=== PATIENT | male | born 1975 | race Hispanic/Latino ===

== ENCOUNTER 2018-12-04 10:52 | Emergency (ER) | payer SELFPAY ==
[2018-12-04] MEDS ORDERED: NA CHLORIDE 0.9% 1,000 ML ONE (11:22)
[2018-12-04 11:38] LABS: Basophils % 0.4 % (0-1.3); Hematocrit 32.6 % (39.6-49.0); Lymphocytes % 28.2 % (15.3-44.8); MPV 9.8 fL (7.6-11.3); RBC Red Blood Cell Count 3.65 M/uL (4.33-5.43)
[2018-12-04 11:55] LABS: Albumin 2.6 g/dL (3.4-5.0); Bilirubin Direct 0.1 mg/dL (0-0.2); Bilirubin Total 0.3 mg/dL (0.2-1.0); Potassium 3.8 mmol/L (3.5-5.1); Protein, Total 6.4 g/dL (6.4-8.2)
[2018-12-04] MEDS ORDERED: CEFTRIAXONE/SWI 1gm 1 GM/10 ML SYR ONE (13:47)
--- NOTE | 2018-12-04 14:09 | ER ---
Nurse's Notes [facility] Name: Harjinder Clayton Age: 43 yrs Sex: Male : 1975 Arrival Date: 12/04/2018 Time: 10:54 Bed 2 Private MD: Diagnosis: Hyperglycemia, unspecified;Chronic Renal Failure, DM - Poorly controlled Presentation: 12/04 10:59 Presenting complaint: Sent from [facility] for DM and renal faiilure. BGL>500, hb CREAT 3.58, HCG 11.1, HCT 32.1. Transition of care: patient was not received from another setting of care. Onset of symptoms was December 04, 2018. Risk Assessment: Do you want to hurt yourself or someone else? Patient reports no desire to harm self or others. Initial Sepsis Screen: Does the patient meet any 2 criteria? No. Patient's initial sepsis screen is negative. Does the patient have a suspected source of infection? No. Patient's initial sepsis screen is negative. Care prior to arrival: None. 10:59 Method Of Arrival: Ambulatory hb 10:59 Acuity: RUSS 3 hb Historical: - Allergies: 11:04 No Known Allergies; hb - PMHx: 11:04 Diabetes - NIDDM; hb - Immunization history:: Adult Immunizations up to date. - Social history:: Smoking status: Patient uses tobacco products, smokes one pack cigarettes per day. - Ebola Screening: : No symptoms or risks identified at this time. Screenin:38 Abuse screen: Denies threats or abuse. Denies injuries from another. Nutritional sg screening: No deficits noted. Tuberculosis screening: No symptoms or risk factors identified. Never had TB. Fall Risk None identified. Assessment: 11:38 Reassessment: Patient appears in no apparent distress at this time. Patient and/or sg family updated on plan of care and expected duration. Pain level reassessed. Vital Signs: 11:04 BP 114 / 64; Pulse 81; Resp 16; Temp 97.7; Pulse Ox 100% on R/A; Pain 0/10; hb ED Course: 10:54 Patient arrived in ED. as 11:02 Ruperto Duncan MD is Attending Physician. kdr 11:03 Triage completed. hb 11:04 Arm band placed on left wrist. hb 11:15 Sales, Itz, RN is Primary Nurse. sg 11:39 Initial lab(s) drawn, by me, sent to lab. Inserted saline lock: 22 gauge in right jb1 forearm, using aseptic technique. Blood collected. 12:06 Patient has correct armband on for positive identification. Placed in gown. Bed in low sg position. Side rails up X2. 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 Pulse ox on. NIBP on. 13:30 No provider procedures requiring assistance completed. Urine collected: straight cath sg specimen, cloudy, leslie colored, Amount Returned: 700mL. 14:30 IV discontinued, intact, bleeding controlled, No redness/swelling at site. Pressure sg dressing applied. Administered Medications: 11:38 Drug: NS 0.9% 1000 ml Route: IV; Rate: 1 bolus; Site: right antecubital; sg 13:37 Follow up: Response: No adverse reaction; IV Intake: 900ml sg 13:40 Drug: Rocephin 1 grams Route: IV; Rate: calculated rate; Site: right antecubital; sg Point of Care Testing: Blood Glucose: 11:08 Blood Glucose: 241 mg/dL; hb Ranges: Intake: 13:37 IV: 900ml; Total: 900ml. sg Outcome: 14:08 Discharge ordered by . kdr 14:30 Discharged to home ambulatory, with family. sg 14:30 Condition: good 14:30 Discharge instructions given to patient, Instructed on discharge instructions, follow up and referral plans. medication usage, safety practices. 14:33 Patient left the ED. sg Signatures: Misha Wilson [email or web address] Itz Sales RN RN sg Ruperto Duncan MD MD kdr Martinez, Amelia as Salma Carrington RN RN hb
--- NOTE | 2018-12-04 14:09 | EDPHYS ---
Physician Documentation [facility] Name: Harjinder Clayton Age: 43 yrs Sex: Male : 1975 Arrival Date: 12/04/2018 Time: 10:54 Bed 2 Private MD: ED Physician Ruperto Duncan HPI: 12/04 15:26 This 43 yrs old Male presents to ER via Ambulatory with complaints of Abnormal kdr Lab Results - Blood Sugar High. 15:26 The patient was noted to have elevated BS in clinic and now sent for evaluation. Onset: kdr The symptoms/episode began/occurred at an unknown time. Severity of symptoms: At their worst the symptoms were mild in the emergency department the symptoms are unchanged. The patient has experienced similar episodes in the past. The patient has not recently seen a physician. 15:26 Sent by unknown clinicians and sent to ED for elevation of high BS. The patient has a kdr wide range of normal and often when taking his BS at home, it is noted to be high as well. Historical: - Allergies: 11:04 No Known Allergies; hb - PMHx: 11:04 Diabetes - NIDDM; hb - Immunization history:: Adult Immunizations up to date. - Social history:: Smoking status: Patient uses tobacco products, smokes one pack cigarettes per day. - Ebola Screening: : No symptoms or risks identified at this time. ROS: 15:26 Constitutional: Negative for fever, chills, and weight loss, Eyes: Negative for injury, kdr pain, redness, and discharge, ENT: Negative for injury, pain, and discharge, Neck: Negative for injury, pain, and swelling, Cardiovascular: Negative for chest pain, palpitations, and edema, Respiratory: Negative for shortness of breath, cough, wheezing, and pleuritic chest pain, Abdomen/GI: Negative for abdominal pain, nausea, vomiting, diarrhea, and constipation, Back: Negative for injury and pain, : Negative for injury, bleeding, discharge, and swelling, MS/Extremity: Negative for injury and deformity, Skin: Negative for injury, rash, and discoloration, Neuro: Negative for headache, weakness, numbness, tingling, and seizure activity. Psych: Negative for depression, anxiety, suicide ideation, homicidal ideation, and hallucinations, Allergy/Immunology: Negative for hives, rash, and allergies, Hematologic/Lymphatic: Negative for swollen nodes, abnormal bleeding, and unusual bruising. 15:26 Endocrine: Positive for polyphagia, weight loss. Exam: 15:26 Constitutional: This is a well developed, well nourished patient who is awake, alert, kdr and in no acute distress. Head/Face: Normocephalic, atraumatic. Eyes: Pupils equal round and reactive to light, extra-ocular motions intact. Lids and lashes normal. Conjunctiva and sclera are non-icteric and not injected. Cornea within normal limits. Periorbital areas with no swelling, redness, or edema. Neck: Trachea midline, no thyromegaly or masses palpated, and no cervical lymphadenopathy. Supple, full range of motion without nuchal rigidity, or vertebral point tenderness. No Meningismus. Chest/axilla: Normal chest wall appearance and motion. Nontender with no deformity. No lesions are appreciated. Cardiovascular: Regular rate and rhythm with a normal S1 and S2. No gallops, murmurs, or rubs. Normal PMI, no JVD. No pulse deficits. Respiratory: Lungs have equal breath sounds bilaterally, clear to auscultation and percussion. No rales, rhonchi or wheezes noted. No increased work of breathing, no retractions or nasal flaring. Abdomen/GI: Soft, non-tender, with normal bowel sounds. No distension or tympany. No guarding or rebound. No evidence of tenderness throughout. Back: No spinal tenderness. No costovertebral tenderness. Full range of motion. Skin: Warm, dry with normal turgor. Normal color with no rashes, no lesions, and no evidence of cellulitis. Vital Signs: 11:04 BP 114 / 64; Pulse 81; Resp 16; Temp 97.7; Pulse Ox 100% on R/A; Pain 0/10; hb MDM: 14:08 Patient medically screened. kdr 15:26 Differential Diagnosis altered mental status, sepsis. Data reviewed: vital signs, kdr nurses notes, lab test result(s), radiologic studies. Counseling: I had a detailed discussion with the patient and/or guardian regarding: the historical points, exam findings, and any diagnostic results supporting the discharge/admit diagnosis, lab results, radiology results, the need for outpatient follow up. ED course: Negative AG and otherwise the patient was not ill or in any acute distress. 12/04 11:11 Order name: Glucose, Ancillary Testing; Complete Time: 11:14 EDMS 12/04 11:15 Order name: Basic Metabolic Panel; Complete Time: 12:04 kdr 12/04 11:15 Order name: CBC with Diff; Complete Time: 12:04 kdr 12/04 11:15 Order name: Creatinine for Radiology; Complete Time: 12:04 kdr 12/04 11:15 Order name: Hepatic Function; Complete Time: 12:04 kdr 12/04 11:15 Order name: Lipase; Complete Time: 12:04 kdr 12/04 11:15 Order name: IV Saline Lock; Complete Time: 11:39 kdr 12/04 11:15 Order name: Labs collected and sent; Complete Time: 11:39 kdr 12/04 11:15 Order name: Urine Dipstick-Ancillary (obtain specimen); Complete Time: 13:37 kdr 12/04 12:41 Order name: Urine Culture kdr 12/04 13:03 Order name: Straight Cath; Complete Time: 13:37 sg 12/04 13:37 Order name: Urine Dipstick--Ancillary (enter results) bd Administered Medications: 11:38 Drug: NS 0.9% 1000 ml Route: IV; Rate: 1 bolus; Site: right antecubital; sg 13:37 Follow up: Response: No adverse reaction; IV Intake: 900ml sg 13:40 Drug: Rocephin 1 grams Route: IV; Rate: calculated rate; Site: right antecubital; sg Point of Care Testing: Blood Glucose: 11:08 Blood Glucose: 241 mg/dL; hb Ranges: Critical Glucose Levels:Adult <50 mg/dl or >400 mg/dl <40 mg/dl or >180 mg/dl Disposition: 12/04/18 14:08 Discharged to Home. Impression: Hyperglycemia, unspecified, Chronic Renal Failure, DM - Poorly controlled. - Condition is Stable. - Prescriptions for Bactrim DS 800- 160 mg Oral Tablet - take 1 tablet by ORAL route every 12 hours for 10 days; 20 tablet. - Medication Reconciliation Form, Thank You Letter, Antibiotic Education form. - Follow up: Private Physician; When: 2 - 3 days; Reason: If symptoms return, Further diagnostic work-up, Recheck today's complaints, Continuance of care, Re-evaluation by your physician. - Problem is an ongoing problem. - Symptoms have improved. Signatures: Dispatcher [employer] EDItz Denney RN RN sg Ruperto Duncan MD MD [facility] Salma Carrington RN RN Corrections: (The following items were deleted from the chart) 14:33 14:08 12/04/2018 14:08 Discharged to Home. Impression: Hyperglycemia, unspecified; sg Chronic Renal Failure, DM - Poorly controlled. Condition is Stable. Forms are Medication Reconciliation Form, Thank You Letter, Antibiotic Education, Prescription Opioid Use. Follow up: Private Physician; When: 2 - 3 days; Reason: If symptoms return, Further diagnostic work-up, Recheck today's complaints, Continuance of care, Re-evaluation by your physician. Problem is an ongoing problem. Symptoms have improved. kdr
[2018-12-04 14:12] LABS: Urine Blood 1+ (NEG); Urine Glucose 2+ (NEG); Urine Protein 3+ (NEG); Urine Specific Gravity 1.025 (1.005-1.030); Urine pH 5.5 (5.0-7.0)
[2018-12-04 15:00] VITALS: BP 114/64; TEMP 97.7; O2SAT 100
== END 2018-12-04 14:33 | disposition home or self-care (01) ==
LOC: ER 10:52
DX: E11.65 Type 2 diabetes mellitus with hyperglycemia (principal); E11.22 Type 2 diabetes mellitus with diabetic chronic kidney disease; N18.9 Chronic kidney disease, unspecified; F17.210 Nicotine dependence, cigarettes, uncomplicated
CPT/HCPCS: 36415; 80048; 80076; 81003; 82962; 83690; 85025; 87086; 87088; 96374; 99284; J0696; J7030